=== PATIENT | male | born 1945 | race Caucasian/White ===

== ENCOUNTER 2018-12-29 11:59 | Emergency (ER) | payer OTHER ==
[2018-12-29] MEDS ORDERED: LEVALBUTEROL 1.25 MG/3 ML NEB ONE (12:40)
[2018-12-29] MEDS ORDERED: IBUPROFEN 400 MG TAB ONE (12:40)
[2018-12-29 13:09] LABS: Absolute Lymphocytes (CBC) 0.7 K/uL (0.7-4.9); Absolute Monocytes 0.9 K/uL (0.1-1.3); Absolute Neutrophil 5.7 K/uL (1.8-8.0); Basophils % 0.1 % (0-1.3); Hematocrit 44.5 % (39.6-49.0); Lymphocytes % 9.8 % (15.3-44.8); MPV 9.3 fL (7.6-11.3); Monocytes % 12.4 % (3.3-12.3); RBC Red Blood Cell Count 4.82 M/uL (4.33-5.43)
[2018-12-29 13:45] LABS: Potassium 3.7 mmol/L (3.5-5.1)
[2018-12-29] MEDS ORDERED: NA CHLORIDE 0.9% 1,000 ML ONE (13:50)
--- NOTE | 2018-12-29 14:13 | EDPHYS ---
Physician Documentation [facility] Name: Bayron Azar Age: 73 yrs Sex: Male : 1945 Arrival Date: 12/29/2018 Time: 12:04 Bed 6 Private MD: None, None ED Physician Quintin Olmedo HPI: 12/29 12:24 This 73 yrs old Male presents to ER via Ambulatory with complaints of Flu rn Symptoms. 12:24 The patient or guardian reports cough, flu symptoms, low-grade fever, myalgias, no rn appetite. Onset: The symptoms/episode began/occurred 5 day(s) ago. Severity of symptoms: At their worst the symptoms were mild, in the emergency department the symptoms are unchanged. Modifying factors: The symptoms are alleviated by nothing, the symptoms are aggravated by nothing. The patient has not experienced similar symptoms in the past. The patient has been recently seen by a physician:. Reports sister had flu, exposed to her recently, has been having 5 days of fever/cough/runny nose/sob/decreased appetite/fatigue, seen at [facility], told flu negative, no diagnosis given, doesn't feel better. . Historical: - Allergies: 12:17 No Known Allergies; hb - Home Meds: 12:17 Atenolol Oral [Active]; Xarelto oral oral [Active]; atorvastatin oral oral [Active]; hb - PMHx: 12:17 Hypertension; hb - Immunization history:: Adult Immunizations up to date. - Social history:: Smoking status: Patient/guardian denies using tobacco. - Ebola Screening: : No symptoms or risks identified at this time. - Family history:: not pertinent. - Hospitalizations: : No recent hospitalization is reported. ROS: 12:24 Constitutional: Negative for weight loss, + fever and chills Eyes: Negative for injury, rn pain, redness, and discharge, ENT: + congestion Neck: Negative for injury, pain, and swelling, Cardiovascular: Negative for chest pain, palpitations, and edema, Respiratory: Negative for shortness of breath, cough, wheezing, and pleuritic chest pain, Abdomen/GI: + anorexia and nausea, neg for abd pain/vomiting MS/Extremity: Negative for injury and deformity, Skin: Negative for injury, rash, and discoloration, Neuro: Negative for headache, numbness, tingling, and seizure. Exam: 12:24 Constitutional: This is a well developed, well nourished patient who is awake, alert, rn and in no acute distress. Walked to room without difficulty. Head/Face: Normocephalic, atraumatic. Eyes: Pupils equal round and reactive to light, extra-ocular motions intact. Lids and lashes normal. Conjunctiva and sclera are non-icteric and not injected. Cornea within normal limits. Periorbital areas with no swelling, redness, or edema. ENT: dry MM, no stridor Neck: Trachea midline, no thyromegaly or masses palpated, and no cervical lymphadenopathy. Supple, full range of motion without nuchal rigidity, or vertebral point tenderness. No Meningismus. Cardiovascular: Regular rate and rhythm, No pulse deficits. Respiratory: Diminished breath sounds bilaterally, no retractions Abdomen/GI: soft, non-tender Skin: Warm, dry with normal turgor. Normal color with no rashes, no lesions, and no evidence of cellulitis. MS/ Extremity: Pulses equal, no cyanosis. Neurovascular intact. Full, normal range of motion. Equal circumference. Neuro: Awake and alert, GCS 15, oriented to person, place, time, and situation. Cranial nerves II-XII grossly intact. Motor strength 5/5 in all extremities. Sensory grossly intact. Cerebellar exam normal. Normal gait. Vital Signs: 12:11 BP 127 / 91; Pulse 59; Resp 18; Temp 99.2(TE); Pulse Ox 96% on R/A; Pain 3/10; hb 13:16 BP 113 / 74; Pulse 85; Resp 18; Pulse Ox 98% on R/A; sv 13:20 Weight 79.38 kg (R); sg MDM: 12:18 Patient medically screened. rn 14:11 Differential Diagnosis: Bronchitis Influenza Upper Respiratory Infection Viral Syndrome rn Pneumonia. Data reviewed: vital signs, nurses notes, lab test result(s), radiologic studies, plain films, and as a result, I will discharge patient. Counseling: I had a detailed discussion with the patient and/or guardian regarding: the historical points, exam findings, and any diagnostic results supporting the discharge/admit diagnosis, lab results, radiology results, the need for outpatient follow up, to return to the emergency department if symptoms worsen or persist or if there are any questions or concerns that arise at home. Response to treatment: the patient's symptoms have mildly improved after treatment, and as a result, I will discharge patient. Special discussion: I discussed with the patient/guardian in detail that at this point there is no indication for admission to the hospital. It is understood, however, that if the symptoms persist or worsen the patient needs to return immediately for re-evaluation. 12/29 12:23 Order name: CBC with Diff; Complete Time: 13:19 rn 12/29 12:23 Order name: Basic Metabolic Panel; Complete Time: 13:51 rn 12/29 12:23 Order name: Flu; Complete Time: 13:19 rn 12/29 12:23 Order name: Strep; Complete Time: 13:51 rn 12/29 12:23 Order name: Blood Culture Adult (2) rn 12/29 12:23 Order name: Procalcitonin; Complete Time: 14:24 rn 12/29 12:23 Order name: IV Start; Complete Time: 13:46 rn 12/29 12:23 Order name: XRAY Chest Pa And Lat (2 Views); Complete Time: 14:24 rn 12/29 13:46 Order name: Throat Culture EDMS Administered Medications: 12:30 Drug: Motrin 800 mg Route: PO; sg 13:00 Follow up: Response: No adverse reaction sg 13:03 Drug: Xopenex 1.25 mg Route: Inhalation; sg 13:30 Follow up: Response: No adverse reaction sg 13:44 Drug: NS 0.9% 1000 ml Route: IV; Rate: 1000 ml; Site: right antecubital; sg Disposition: 12/29/18 14:12 Discharged to Home. Impression: Influenza due to identified novel influenza A virus, Pneumonia, Dehydration. - Condition is Stable. - Discharge Instructions: Influenza, Adult, Community-Acquired Pneumonia, Adult. - Prescriptions for Tamiflu 75 mg Oral Capsule - take 1 capsule by ORAL route every 12 hours for 5 days; 10 capsule. Zithromax Z- Mihai 250 mg Oral Tablet - take 1 tablet by ORAL route as directed for 5 days Day 1 - take two (2) tablets one time. Day 2, 3, 4 , 5 take one (1) tablet once daily.; 6 tablet. Albuterol Sulfate 90 mcg/actuation - inhale 1-2 puff by INHALATION route every 4-6 hours; 1 Inhaler. - Medication Reconciliation Form, Thank You Letter, Antibiotic Education, Prescription Opioid Use form. - Follow up: Private Physician; When: As needed; Reason: Recheck today's complaints, Re-evaluation by your physician. - Problem is new. - Symptoms have improved. Signatures: Dispatcher [employer] Ming Marroquin RN RN sg Nieto, Roman, MD MD rn Baxter, Heather, RN RN Corrections: (The following items were deleted from the chart) 14:28 14:12 12/29/2018 14:12 Discharged to Home. Impression: Influenza due to identified sg novel influenza A virus; Pneumonia; Dehydration. Condition is Stable. Forms are Medication Reconciliation Form, Thank You Letter, Antibiotic Education, Prescription Opioid Use. Follow up: Private Physician; When: As needed; Reason: Recheck today's complaints, Re-evaluation by your physician. Problem is new. Symptoms have improved. rn
--- NOTE | 2018-12-29 14:13 | ER ---
Nurse's Notes [facility] Name: Bayron Azar Age: 73 yrs Sex: Male : 1945 Arrival Date: 12/29/2018 Time: 12:04 Bed 6 Private MD: None, None Diagnosis: Influenza due to identified novel influenza A virus;Pneumonia;Dehydration Presentation: 12/29 12:14 Presenting complaint: Chest congestion, nonproductive cough, headache, SOB, chills, hb body aches, diarrhea, and nausea x 1 week. Transition of care: patient was not received from another setting of care. Onset of symptoms was December 22, 2018. Risk Assessment: Do you want to hurt yourself or someone else? Patient reports no desire to harm self or others. Care prior to arrival: None. 12:14 Method Of Arrival: Ambulatory 12:14 Acuity: ELOY 3 hb Historical: - Allergies: 12:17 No Known Allergies; hb - Home Meds: 12:17 Atenolol Oral [Active]; Xarelto oral oral [Active]; atorvastatin oral oral [Active]; hb - PMHx: 12:17 Hypertension; hb - Immunization history:: Adult Immunizations up to date. - Social history:: Smoking status: Patient/guardian denies using tobacco. - Ebola Screening: : No symptoms or risks identified at this time. - Family history:: not pertinent. - Hospitalizations: : No recent hospitalization is reported. Screenin:03 Abuse screen: Denies threats or abuse. Denies injuries from another. Nutritional sg screening: No deficits noted. Tuberculosis screening: No symptoms or risk factors identified. Never had TB. Fall Risk None identified. Assessment: 12:30 General: Appears in no apparent distress. well groomed, well developed, well nourished, sg Behavior is calm, cooperative, appropriate for age. Pain: Complains of pain in body aches, with generalized weakness Quality of pain is described as aching. Neuro: Level of Consciousness is awake, alert, obeys commands, Oriented to person, place, time, situation, Network Operations Technician are equal bilaterally Moves all extremities. Full function Gait is steady, Speech is normal, Facial symmetry appears normal. Cardiovascular: Patient's skin is warm and dry. Chest pain is denied. Respiratory: Airway is patent Respiratory effort is even, unlabored, Respiratory pattern is regular, symmetrical. GI: No signs and/or symptoms were reported involving the gastrointestinal system. : No signs and/or symptoms were reported regarding the genitourinary system. EENT: Nares are clear bilaterally Oral mucosa is moist. Throat is pink. Derm: Skin is pink, warm \T\ dry. Musculoskeletal: No signs and/or symptoms reported regarding the musculoskeletal system. 13:48 Reassessment: Patient appears in no apparent distress at this time. Patient and/or sg family updated on plan of care and expected duration. Pain level reassessed. Patient is alert, oriented x 3, equal unlabored respirations, skin warm/dry/pink. Patient states feeling better. Vital Signs: 12:11 BP 127 / 91; Pulse 59; Resp 18; Temp 99.2(TE); Pulse Ox 96% on R/A; Pain 3/10; hb 13:16 BP 113 / 74; Pulse 85; Resp 18; Pulse Ox 98% on R/A; sv 13:20 Weight 79.38 kg (R); sg ED Course: 12:04 Patient arrived in ED. sb2 12:04 None, None is Private Physician. sb2 12:15 Triage completed. hb 12:17 Arm band placed on left wrist. hb 12:18 Quintin Olmedo MD is Attending Physician. rn 12:22 Ming Nye, BERNARDINO is Primary Nurse. sg 12:30 Initial lab(s) drawn, by me, sent to lab. First set of blood cultures drawn by me. sg Inserted saline lock: 22 gauge in right antecubital area, using aseptic technique. Blood collected. 12:45 Second set of blood cultures drawn by me. Flu and/or RSV swab sent to lab. Strep swab sg sent to lab. 12:55 X-ray completed. Patient tolerated procedure well. sg4 12:56 XRAY Chest Pa And Lat (2 Views) In Process Unspecified. EDMS Administered Medications: 12:30 Drug: Motrin 800 mg Route: PO; sg 13:00 Follow up: Response: No adverse reaction sg 13:03 Drug: Xopenex 1.25 mg Route: Inhalation; sg 13:30 Follow up: Response: No adverse reaction sg 13:44 Drug: NS 0.9% 1000 ml Route: IV; Rate: 1000 ml; Site: right antecubital; sg Outcome: 14:12 Discharge ordered by . rn 14:28 Patient left the ED. sg Signatures: Dispatcher [employer] Lou Chavarria RN RN sv Gay, Steven, RN RN sg Nieto, Roman, MD MD rn Baxter, Heather, RN RN hb Billeau, Sheri 2 Shonda Espinal sg4 Corrections: (The following items were deleted from the chart) 13:16 13:16 BP 113 / 74; Pulse 60bpm; Resp 18bpm; Pulse Ox 98% RA; sv sv
--- NOTE | 2018-12-29 14:18 | RAD REPORT ---
EXAM DESCRIPTION: RAD - Chest Pa And Lat (2 Views) - 12/29/2018 12:57 pm CLINICAL HISTORY: Cough and congestion COMPARISON: None. TECHNIQUE: PA and lateral views of the chest were obtained. FINDINGS: The lungs are fibrotic with flattened diaphragm and increased retrosternal space. Baseline for the patient is unknown. No clearly acute consolidation or mass lesion. No failure or volume over load. Heart size is normal and central vasculature is within normal limits. No pleural effusion or pneu mothorax seen. No acute bony finding noted. No aortic abnormality. IMPRESSION: Baseline examination showing COPD findings. No focal consolidation, suspicious mass or failure.
== END 2018-12-29 14:28 | disposition home or self-care (01) ==
LOC: ER 11:59
DX: J10.00 Influenza due to other identified influenza virus with unspecified type of pneumonia (principal); E86.0 Dehydration; I10 Essential (primary) hypertension; Z79.899 Other long term (current) drug therapy; Z79.01 Long term (current) use of anticoagulants
CPT/HCPCS: 36415; 71046; 80048; 84145; 85025; 87040 ×2; 87070; 87081; 87804 ×2; 99284; J7030

== ENCOUNTER 2025-09-14 11:57 | Emergency (ER) | payer OTHER ==
[2025-09-14] MEDS ORDERED: ASPIRIN 81 MG CHEWABLE TABLET ONE (12:37)
[2025-09-14] MEDS ORDERED: METOPROLOL TARTRATE 5 MG/5 ML INJ IV ONE ×3 (12:43→13:00)
[2025-09-14 12:47] LABS: Absolute Lymphocytes (CBC) 0.9 K/uL (0.7-4.9); Hematocrit 36.4 % (39.6-49.0); Hemoglobin 11.9 g/dL (13.6-17.9); MCH 29.6 pg (27.0-35.0); MCHC 32.8 g/dL (32.0-36.0); MCV 90.3 fL (80-100); MPV 8.5 fL (7.6-11.3); Nucleated RBC Absolute Count 0.0 (0-0); Nucleated Red Blood Cells % 0.0 % (0-0); RBC Red Blood Cell Count 4.04 M/uL (4.33-5.43); White Blood Count 5.40 thou/uL (4.3-10.9)
[2025-09-14 12:57] LABS: PT Prothrombin Time 14.6 SECONDS (10-13.0); Protime INR 1.3
--- NOTE | 2025-09-14 13:05 | RAD REPORT ---
EXAM: Chest Single View HISTORY: 80 years Male CHEST PAIN COMPARISON: 12/29/2018 FINDINGS: LUNGS/PLEURA: The lungs are clear. No pleural effusions or pneumothorax. No pulmonary edema. CARDIAC/MEDIASTINUM: Mild cardiomegaly Annuloplasty changes UPPER ABDOMEN: No significant abnormality. BONES: No acute abnormality. LINES/TUBES/OTHER: N/A IMPRESSION: No evidence of acute cardiopulmonary disease.
[2025-09-14 13:14] LABS: ALT/SGPT 20.0 U/L (16-61); AST/SGOT 20.0 U/L (15-37); Albumin 3.6 g/dL (3.4-5.0); Albumin/Globulin Ratio 1.2 (1.1-1.8); Alkaline Phosphatase 85.0 U/L (45-117); Anion Gap 8.1 mEq/L (5.0-15.0); BUN Blood Urea Nitrogen 17.0 mg/dL (7-18); Bilirubin Indirect, Calculated 0.4 mg/dL (0.2-0.8); Globulin 3.1 g/dL (2.3-3.5); Glucose Level 92.0 mg/dL (74-106); Magnesium 1.8 mg/dL (1.6-2.4); NT PRO-BNP 1276.0 pg/mL (<450); Potassium 4.1 mEq/L (3.5-5.1); Thyroid Stimulating Hormone 0.951 uIU/mL (0.358-3.740); Troponin High Sensitivity 25.8 pg/mL (<58.9)
--- NOTE | 2025-09-14 13:23 | ER ---
Nurse's Notes [facility] Name: Bayron Azar Age: 80 yrs Sex: Male : 1945 Arrival Date: 09/14/2025 Time: 11:57 Bed 20 Private MD: Diagnosis: Atrial fibrillation with rapid ventricular response Presentation: 09/14 12:14 Chief complaint: Patient states: Pt arrives via [facility] on strecther. He was [facility]3 [facility] for 6 month check up and was found to have HR of 135. Pt with known A-fib, EKG done at clinic and on arrival, found to be in A-fib RVR. Pt denies CP, SOB or any complaints; Afebrile. Coronavirus screen: Vaccine status: Client denies travel out of the [place] in the last 14 days. Ebola Screen: Patient negative for fever greater than or equal to 101.5 degrees Fahrenheit, and additional compatible Ebola Virus Disease symptoms Patient denies exposure to infectious person. Patient denies travel to an Ebola-affected area in the 21 days before illness onset. Initial Sepsis Screen: Does the patient meet any 2 criteria? No. Patient's initial sepsis screen is negative. Does the patient have a suspected source of infection? No. Patient's initial sepsis screen is negative. Risk Assessment: Do you want to hurt yourself or someone else? Patient reports no desire to harm self or others. Note Denies symptoms, other than knowing HR elevated for about a week. Onset of symptoms is unknown. 12:14 Method Of Arrival: EMS: [facility] ab3 12:14 Acuity: ELOY 2 ab3 Triage Assessment: 12:24 General: Appears in no apparent distress. Behavior is calm, cooperative. Pain: Denies ab3 pain. Neuro: No deficits noted. Cardiovascular: Reports Noticing his heart rate was intermittently elevated over last week Denies chest pain, fatigue, lightheadedness, palpitations, Heart tones S1 S2 Capillary refill < 3 seconds Clubbing of nail beds is absent Patient's skin is warm and dry. Rhythm is atrial fibrillation Chest pain is denied Dialysis shunt: Parent/caregiver reports patient has had. Cardiovascular: Rhythm is A-fib with RVR. Respiratory: No deficits noted. Historical: - Allergies: 12:23 No Known Allergies; ab3 - PMHx: 12:23 Hypertension; Atrial fibrillation; ab3 - Immunization history:: Adult Immunizations up to date. - Infectious Disease History:: Denies. - Social history:: Smoking status: Patient/guardian denies using tobacco, the patient reports quitting approximately 45 years ago. Screenin:[facility] ED Fall Risk Assessment (Adult) History of falling in the last 3 months, ab3 including since admission No falls in past 3 months (0 pts) Confusion or Disorientation No (0 pts) Intoxicated or Sedated No (0 pts) Impaired Gait No (0 pts) Mobility Assist Device Used No (0 pt) Altered Elimination No (0 pt) Score/Fall Risk Level 0 - 2 = Low Risk Oriented to surroundings, Maintained a safe environment, Educated pt \T\ family on fall prevention, incl call for assistance when getting out of bed, Assessed \T\ reinforced patient's understanding of fall precautions, Provided non-skid footwear, Hourly rounding (assess needs \T\ fall precautionary measures) done. Abuse screen: Denies threats or abuse. Denies injuries from another. Nutritional screening: No deficits noted. Tuberculosis screening: No symptoms or risk factors identified. Never had TB. Assessment: 12:28 Reassessment: See triage assessment put in by this RN . ab3 15:50 Reassessment: ER TO ER REPORT GIVEN TO BERNARDINO CASTANO AT THE [facility] ab3 17:04 Reassessment: Report given to [facility] medic #3. ab3 Vital Signs: 12:14 BP 134 / 82; Pulse 134; Resp 18; Temp 98.4(O); Pulse Ox 100% on R/A; Weight 65.77 kg; ab3 Height 5 ft. 8 in. ; Pain 0/10; 12:30 BP 126 / 90; Pulse 129; Resp 20; Pulse Ox 99% on R/A; Pain 0/10; ab3 12:45 BP 129 / 95; Pulse 129; Resp 14; Pulse Ox 99% on R/A; ab3 12:50 Pulse 122; Pulse Ox 100% on R/A; ab3 12:58 Pulse 120; ab3 13:00 BP 117 / 71; Pulse 119; Resp 14; Pulse Ox 97% on R/A; Pain 0/10; ab3 13:30 BP 125 / 99; Pulse 121; Resp 17; Pulse Ox 100% on R/A; ab3 13:45 BP 123 / 97; Pulse 120; Resp 17; Pulse Ox 100% on R/A; Pain 0/10; ab3 14:30 BP 119 / 92; Pulse 118; Resp 14; Pulse Ox 99% on R/A; Pain 0/10; ab3 15:00 BP 129 / 91; Pulse 113; Resp 19; Pulse Ox 99% on R/A; Pain 0/10; ab3 15:19 Pain 0/10; ab3 15:30 BP 138 / 109; Pulse 115; Resp 16; Pulse Ox 100% on R/A; ab3 16:00 BP 123 / 96; Pulse 52; Resp 18; Pulse Ox 99% on R/A; Pain 0/10; ab3 16:30 BP 118 / 84; Pulse 90; Resp 17; Pulse Ox 100% on R/A; ab3 17:02 BP 120 / 108; Pulse 115; Resp 20; Temp 98(O); Pulse Ox 99% ; Pain 0/10; ab3 12:14 Body Mass Index 22.05 (65.77 kg, 172.72 cm) ab3 12:14 Pain Scale: Adult ab3 12:30 Pain Scale: Adult ab3 13:00 Pain Scale: Adult ab3 13:45 Pain Scale: Adult ab3 14:30 Pain Scale: Adult ab3 15:00 Pain Scale: Adult ab3 15:19 Pain Scale: Adult ab3 16:00 Pain Scale: Adult ab3 17:02 Pain Scale: Adult ab3 16:00 Catherine REGALADO PA-C NOTIFED OF PT HR CHANGE TO LOW 50'S; Catherine REGALADO PA-C TO , REVIEWS STRIP ab3 WITH HR IN 50'S, BUT A-FIB. NO NEW ORDERS REC'D. PER DEVYN PRUITT PT OKAY [facility]IN[facility] Vitals: 12:30 Cardiac Rhythm Assessment Atrial fibrillation W/rapid ventricular response. ab3 12:50 Cardiac Rhythm Assessment Atrial fibrillation W/rapid ventricular response. ab3 13:45 Cardiac Rhythm Assessment Atrial fibrillation W/rapid ventricular response. ab3 15:00 Cardiac Rhythm Assessment Atrial fibrillation W/rapid ventricular response. ab3 16:00 Cardiac Rhythm Assessment Atrial fibrillation. ab3 17:02 Cardiac Rhythm Assessment Atrial fibrillation W/rapid ventricular response. ab3 ED Course: 12:04 Patient arrived in ED. bd 12:07 Cat Regalado PA-C is PHCP. sb4 12:07 Quintin Olmedo MD is Attending Physician. sb4 12:14 Kasey Mcclain, BERNARDINO is Primary Nurse. ab3 12:20 Client placed on continuous cardiac and pulse oximetry monitoring. NIBP monitoring ab3 applied. traffic monitor specialist on. Pulse ox on. NIBP on. 12:23 Triage completed. ab3 12:25 EKG completed in triage. Results shown to MD. ab3 12:25 EKG done, by ED staff, reviewed by Quintin Olmedo MD. Maintain EMS IV. Dressing intact. ab3 Good blood return noted. Site clean \T\ dry. Gauge \T\ site: 20 G PIV to RAC. Flushed with 10 mL NS. 12:28 Arm band placed on. ab3 12:28 Patient has correct armband on for positive identification. Bed in low position. Call ab3 light in reach. Side rails up X 1. Provided Education on: oriented to room and call-light use. 12:28 No provider procedures requiring assistance completed. ab3 12:30 Initial lab(s) drawn, by me, sent to lab. ab3 12:59 XRAY Chest (1 view) In Process Unspecified. EDMS 13:33 [facility] bc6 17:08 Patient transferred, IV remains in place. ab3 Administered Medications: 12:38 Drug: Aspirin PO Chewable Tablet 324 mg PO once; 81 mg tablets x 4 Route: PO; ab3 15:19 Follow up: Pain 0/10 Adult; Response: No adverse reaction; Other ab3 12:44 Drug: Metoprolol IVP 5 mg IVP every 5 minutes; Hold for SBP < 100 or HR < 60. x3 {Note: ab3 1st dose.} Route: IVP; Site: right antecubital; 12:51 Drug: Metoprolol IVP 5 mg IVP every 5 minutes; Hold for SBP < 100 or HR < 60. x3 {Note: ab3 2nd dose HR122 .} Route: IVP; Site: right antecubital; 13:00 Drug: Metoprolol IVP 5 mg IVP every 5 minutes; Hold for SBP < 100 or HR < 60. x3 {Note: ab3 3rd dose HR 119 (SBP 117).} Route: IVP; Site: right antecubital; 13:54 Follow up: Response: No adverse reaction; Cardiac rhythm is unchanged ab3 15:19 Follow up: Response: No adverse reaction ab3 13:51 Drug: Magnesium Sulfate IVPB 2 grams IVPB once over 2 hrs Route: IVPB; Rate: 25 ml/hr; ab3 Infused Over: 2 hrs; Site: right antecubital; Delivery: Primary tubing; 15:16 Follow up: IV Status: Completed infusion; IV Intake: 50ml ab3 15:19 Follow up: Response: No adverse reaction ab3 13:51 Drug: Metoprolol PO 50 mg PO once Route: PO; ab3 15:17 Follow up: Response: No adverse reaction; Cardiac rhythm is unchanged ab3 15:19 Follow up: Response: No adverse reaction ab3 Medication: 12:50 VIS not applicable for this client. ab3 Intake: 15:16 IV: 50ml; Total: 50ml. ab3 Outcome: 13:23 ER care complete, transfer ordered by sb4 17:08 Transferred by ground EMS to other [facility] ab3 17:08 Condition: stable 17:08 Instructed on the need for transfer, safety practices, Demonstrated understanding of instructions, follow-up care, 17:16 Patient left the ED. ab3 Signatures: Dispatcher [employer] EDMS Keara Melendez Sophia, PA-C PA-C sb4 Elizabeth Cohen Allie, RN RN ab3 Corrections: (The following items were deleted from the chart) 15:17 14:30 BP 128 / 93; Pulse 114bpm; Resp 14bpm; Pulse Ox 100% RA; ab3 ab3
--- NOTE | 2025-09-14 13:23 | EDPHYS ---
Physician Documentation [facility] Name: Bayron Azar Age: 80 yrs Sex: Male : 1945 Arrival Date: 09/14/2025 Time: 11:57 Bed 20 Private MD: ED Physician Quintin Olmedo HPI: 09/14 12:58 This 80 yrs old Male presents to ER via EMS with complaints of elevated HR. sb4 13:09 Patient was at a routine office visit when his heart rate was found to be 138. No EKG sb4 was obtained, patient has no complaints, EMS was activated and patient was brought here. Patient states that he does have a history of A-fib, reports compliance with his medications. Historical: - Allergies: 12:23 No Known Allergies; ab3 - PMHx: 12:23 Hypertension; Atrial fibrillation; ab3 - Immunization history:: Adult Immunizations up to date. - Infectious Disease History:: Denies. - Social history:: Smoking status: Patient/guardian denies using tobacco, the patient reports quitting approximately 45 years ago. ROS: 13:09 Constitutional: Negative for fever, chills, and weight loss, sb4 13:09 All other systems are negative, Exam: 13:09 Constitutional: This is a well developed, well nourished patient who is awake, alert, sb4 and in no acute distress. Head/Face: Normocephalic, atraumatic. Eyes: Extra-ocular motions intact. Periorbital areas with no swelling, redness, or edema. ENT: Mucous membranes moist. Respiratory: No increased work of breathing, no retractions or nasal flaring. Abdomen/GI: Soft, non-tender, no distension. Skin: Warm, dry with normal turgor. Normal color with no rashes, no lesions, and no evidence of cellulitis. 13:09 Cardiovascular: Rate: tachycardic, Rhythm: irregularly irregular, Vital Signs: 12:14 BP 134 / 82; Pulse 134; Resp 18; Temp 98.4(O); Pulse Ox 100% on R/A; Weight 65.77 kg; ab3 Height 5 ft. 8 in. ; Pain 0/10; 12:30 BP 126 / 90; Pulse 129; Resp 20; Pulse Ox 99% on R/A; Pain 0/10; ab3 12:45 BP 129 / 95; Pulse 129; Resp 14; Pulse Ox 99% on R/A; ab3 12:50 Pulse 122; Pulse Ox 100% on R/A; ab3 12:58 Pulse 120; ab3 13:00 BP 117 / 71; Pulse 119; Resp 14; Pulse Ox 97% on R/A; Pain 0/10; ab3 13:30 BP 125 / 99; Pulse 121; Resp 17; Pulse Ox 100% on R/A; ab3 13:45 BP 123 / 97; Pulse 120; Resp 17; Pulse Ox 100% on R/A; Pain 0/10; ab3 14:30 BP 119 / 92; Pulse 118; Resp 14; Pulse Ox 99% on R/A; Pain 0/10; ab3 15:00 BP 129 / 91; Pulse 113; Resp 19; Pulse Ox 99% on R/A; Pain 0/10; ab3 15:19 Pain 0/10; ab3 15:30 BP 138 / 109; Pulse 115; Resp 16; Pulse Ox 100% on R/A; ab3 16:00 BP 123 / 96; Pulse 52; Resp 18; Pulse Ox 99% on R/A; Pain 0/10; ab3 16:30 BP 118 / 84; Pulse 90; Resp 17; Pulse Ox 100% on R/A; ab3 17:02 BP 120 / 108; Pulse 115; Resp 20; Temp 98(O); Pulse Ox 99% ; Pain 0/10; ab3 12:14 Body Mass Index 22.05 (65.77 kg, 172.72 cm) ab3 12:14 Pain Scale: Adult ab3 12:30 Pain Scale: Adult ab3 13:00 Pain Scale: Adult ab3 13:45 Pain Scale: Adult ab3 14:30 Pain Scale: Adult ab3 15:00 Pain Scale: Adult ab3 15:19 Pain Scale: Adult ab3 16:00 Pain Scale: Adult ab3 17:02 Pain Scale: Adult ab3 16:00 Catherine DUKE PA-C NOTIFED OF PT HR CHANGE TO LOW 50'S; Catherine DUKE PA-C TO , REVIEWS STRIP ab3 WITH HR IN 50'S, BUT A-FIB. NO NEW ORDERS REC'D. PER DEVYN PRUITT PT OKAY TO CONTINUE WITH TRANSFER TO [place]. MDM: 12:07 Medical Screening Exam initiated sb4 13:23 Data reviewed: vital signs, nurses notes, EMS record, lab test result(s), EKG, sb4 radiologic studies. Counseling: I had a detailed discussion with the patient and/or guardian regarding the historical points, exam findings, and any diagnostic results supporting the discharge/admit diagnosis, lab results, radiology results, the need to transfer to another facility. 13:23 ED course: Patient remains in A-fib RVR after 5 rounds of IV metoprolol. He does meet 4 admission criteria. He is a [place] patient and has all of his care down there, would prefer to be sent there. Will initiate transfer. 14:16 Management of patient was discussed with the following: Industrial Maintenance Manager: Er physician at [place], [facility] accepts patient for transfer. 09/14 12:07 Order name: Basic Metabolic Panel; Complete Time: 13:16 sb4 09/14 12:07 Order name: CBC with Diff; Complete Time: 12:48 sb4 09/14 12:07 Order name: LFT's; Complete Time: 13:16 sb4 09/14 12:07 Order name: Magnesium; Complete Time: 13:16 sb4 09/14 12:07 Order name: NT PRO-BNP; Complete Time: 13:16 sb4 09/14 12:07 Order name: PT-INR; Complete Time: 12:58 sb4 09/14 12:07 Order name: Troponin HS; Complete Time: 13:16 sb4 09/14 12:08 Order name: TSH; Complete Time: 13:16 sb4 09/14 12:07 Order name: XRAY Chest (1 view); Complete Time: 13:06 sb4 09/14 12:07 Order name: Cardiac monitoring; Complete Time: 12:30 sb4 09/14 12:07 Order name: EKG - Nurse/Tech; Complete Time: 12:30 sb4 09/14 12:07 Order name: IV Saline Lock; Complete Time: 12:30 sb4 09/14 12:07 Order name: Labs collected and sent; Complete Time: 12:41 sb4 09/14 12:07 Order name: O2 Per Protocol; Complete Time: 12:41 sb4 09/14 12:07 Order name: O2 Sat Monitoring; Complete Time: 12:30 sb4 EC:00 Rate is 127 beats/min. Rhythm is irregularly irregular, A fib. QRS interval is normal sb4 at 138 msec. QT interval is normal at 349 msec. Clinical impression: Atrial Fibrillation and with RVR. Interpreted by me. Reviewed by me. Administered Medications: 12:38 Drug: Aspirin PO Chewable Tablet 324 mg PO once; 81 mg tablets x 4 Route: PO; ab3 15:19 Follow up: Pain 0/10 Adult; Response: No adverse reaction; Other ab3 12:44 Drug: Metoprolol IVP 5 mg IVP every 5 minutes; Hold for SBP < 100 or HR < 60. x3 {Note: ab3 1st dose.} Route: IVP; Site: right antecubital; 12:51 Drug: Metoprolol IVP 5 mg IVP every 5 minutes; Hold for SBP < 100 or HR < 60. x3 {Note: ab3 2nd dose HR122 .} Route: IVP; Site: right antecubital; 13:00 Drug: Metoprolol IVP 5 mg IVP every 5 minutes; Hold for SBP < 100 or HR < 60. x3 {Note: ab3 3rd dose HR 119 (SBP 117).} Route: IVP; Site: right antecubital; 13:54 Follow up: Response: No adverse reaction; Cardiac rhythm is unchanged ab3 15:19 Follow up: Response: No adverse reaction ab3 13:51 Drug: Magnesium Sulfate IVPB 2 grams IVPB once over 2 hrs Route: IVPB; Rate: 25 ml/hr; ab3 Infused Over: 2 hrs; Site: right antecubital; Delivery: Primary tubing; 15:16 Follow up: IV Status: Completed infusion; IV Intake: 50ml ab3 15:19 Follow up: Response: No adverse reaction ab3 13:51 Drug: Metoprolol PO 50 mg PO once Route: PO; ab3 15:17 Follow up: Response: No adverse reaction; Cardiac rhythm is unchanged ab3 15:19 Follow up: Response: No adverse reaction ab3 Disposition: 18:23 Co-signature as Attending Physician, Quintin Olmedo MD I reviewed the patient's care rn provided by the Advanced Practice Provider and agree with the diagnosis and treatment plan. Disposition Summary: 09/14/25 13:23 Transfer Ordered Notes: Transfer Location: [facility] sb4 Reason: Higher level of care sb4 Condition: Stable sb4 Problem: new sb4 Symptoms: are unchanged sb4 Accepting Physician: ava(09/14/25 17:16) ab3 Diagnosis - Atrial fibrillation with rapid ventricular response sb4 Forms: - Medication Reconciliation Form sb4 - SBAR form sb4 Critical care time excluding procedures: 16:59 Critical care time: Bedside Care: 25 minutes, Consultation: 10 minutes. Total time: 35 sb4 minutes Signatures: Dispatcher [employer] EDMS Quintin Olmedo MD MD rn Brown, Sophia, PA-C PAFlakito sb4 Kasey Mcclain RN RN ab3 Corrections: (The following items were deleted from the chart) 12:08 12:08 Chest Single View+RAD.RAD.BRZ ordered. EDMS EDMS 12:08 12:08 THYROID STIMULAT HORMONE+C.LAB.BRZ ordered. EDMS EDMS 17:16 13:23 [place] sb4 ab3
[2025-09-14] MEDS ORDERED: METOPROLOL XL 50 MG TAB PO ONE (13:50)
[2025-09-14] MEDS ORDERED: Magnesium Sulfate 2gm IVPB 2 G/50 ML BAG IV ONE (13:51)
[2025-09-14 23:40] VITALS: BP 120/108; TEMP 98; O2SAT 99
== END 2025-09-14 17:16 ==
LOC: ER 11:57
DX: I48.11 Longstanding persistent atrial fibrillation (principal); I10 Essential (primary) hypertension
CPT/HCPCS: 96365; 93005; 85025; 80048; 36415; 83735; 85610; 80076; 84443; 84484; 83880; 71045; 96375; 99285; J3475